=== PATIENT | male | born 1995 | race Caucasian/White ===

== ENCOUNTER 2017-06-24 06:54 | Emergency (ER) | payer OTHER ==
[2017-06-24] MEDS: CYCLOBENZAPRINE 10 MG TAB PO (07:35)
[2017-06-24] MEDS: KETOROLAC 60 MG/2 ML VIAL (J1885) IM (07:35)
== END 2017-06-24 08:08 | disposition home or self-care (01) ==
LOC: M ED 06:54
DX: Z04.1 Encounter for examination and observation following transport accident (principal); S39.012A Strain of muscle, fascia and tendon of lower back, initial encounter; V47.6XXA Car passenger injured in collision with fixed or stationary object in traffic accident, initial encounter; Y92.410 Unspecified street and highway as the place of occurrence of the external cause
CPT/HCPCS: J1885

== ENCOUNTER 2018-12-25 19:59 | Emergency (ER) | payer OTHER ==
[~2018-12-25] VITALS: Ht 188 cm; Wt 102.3 kg
[~2018-12-25 19:59] MED LIST: CYCL10TA PO; KETO10TAB PO
[2018-12-25] MEDS ORDERED: LIDOCAINE 2% MDV 20 ML VIAL SC ONE (22:30)
[2018-12-25] MEDS ORDERED: KEFL500C17 PO (23:45)
[2018-12-25 23:58] VITALS: BP 125/71
[2018-12-26] MEDS ORDERED: NEOSPORIN OINT 0.9 GM PKT (FLOOR STOCK) TOP ONE
--- NOTE | 2018-12-26 08:24 | REP ---
Left hand series: Four views. History: Cut with an axe. Findings: There is soft-tissue swelling and irregularity over the distal first metacarpal consistent with a soft tissue laceration. No fracture, opaque foreign body, or intra-articular gas is appreciated. Impression: No acute bony abnormality. Soft tissue swelling and irregularity over the distal end of the first metacarpal may represent a laceration. Electronically Signed by Raphael Navarro MD 12/26/2018 08:16 A
== END 2018-12-26 | disposition home or self-care (01) ==
LOC: M ED 19:59
DX: S61.412A Laceration without foreign body of left hand, initial encounter (principal); W27.0XXA Contact with workbench tool, initial encounter; Y92.89 Other specified places as the place of occurrence of the external cause; Y99.0 Civilian activity done for income or pay

== ENCOUNTER 2020-07-22 06:59 | Emergency (ER) | payer OTHER ==
[~2020-07-22] VITALS: Ht 193 cm; Wt 103.6 kg
[~2020-07-22 06:59] MED LIST changes: +CYCL-707 PO; -CYCL10TA PO; +KEFL500C17 PO
[2020-07-22 07:00] VITALS: BP 126/76
== END 2020-07-22 08:35 | disposition home or self-care (01) ==
LOC: M ED 06:59
DX: J02.9 Acute pharyngitis, unspecified (principal); R51.9 Headache, unspecified; R09.89 Other specified symptoms and signs involving the circulatory and respiratory systems; R68.83 Chills (without fever)